=== PATIENT | male | born 1975 | race Caucasian/White ===

== ENCOUNTER 2024-12-06 23:43 | Emergency (ER) | payer SELFPAY ==
[~2024-12-06] VITALS: Ht 177.8 cm; Wt 101.0 kg
[2024-12-06 23:45] VITALS: O2SAT 96
[2024-12-07] MEDS: FLUORESCEIN SODIUM 1MG/STRIP RIGHTEYE ONE (01:12)
[2024-12-07] MEDS: LIDOCAINE HCL 1% 20ML VIAL INFIL ONE (01:12)
[2024-12-07] MEDS: TETANUS, DIPHTHERIA, PERTUSSIS VAC/PF 0.5ML (>10YR OLD) IM ONE (01:13)
[2024-12-07] MEDS: BACITRACIN ZINC OINT UDPKT TOP ONE (01:14)
[2024-12-07] MEDS: ACETAMINOPHEN 500MG TABLET PO ONE (01:14)
[2024-12-07] MEDS ORDERED: IBUP-1455 MT (01:29)
[2024-12-07] MEDS ORDERED: BO1 TP (01:29)
[2024-12-07 03:21] LABS: CREATININE 0.8 mg/dL (0.6-1.3); UREA NITROGEN BLOOD 5 mg/dL (9-23)
[2024-12-07 03:38] LABS: BASOPHILS % 0.3 % (0.0-2.0); EOSINOPHILS % 1.8 % (0.0-5.0); HEMATOCRIT. 46.1 % (42.0-52.0); HEMOGLOBIN. 15.7 g/dL (14.0-18.0); LYMPHOCYTES % 14.4 % (20.0-50.0); MEAN PLATELET VOLUME 9.3 fl (7.4-10.4); MONOCYTES % 8.0 % (2.0-8.0); NEUTROPHILS % 75.5 % (40.0-76.0); PLATELET 157 x1000/uL (130-400); RED BLOOD CELL COUNT 5.32 mill/uL (4.7-6.1); RED CELL DISTRIBUTION WIDTH 13.4 % (11.6-14.6)
[2024-12-07] MEDS: SODIUM CHLORIDE 0.9% 500 ML IV ONE (03:45)
[2024-12-07 04:52] VITALS: BP 139/82; PULSE 91; RESP 18; TEMP 36.9; O2SAT 96
== END 2024-12-07 05:05 | disposition home or self-care (01) ==
LOC: ER 23:43
DX: S00.83XA Contusion of other part of head, initial encounter (principal); M54.2 Cervicalgia; Y09 Assault by unspecified means; Y93.89 Activity, other specified; Y92.89 Other specified places as the place of occurrence of the external cause; Y99.8 Other external cause status
CPT/HCPCS: 12011; 99285; 80048; 85025; 36415; 70450; 70486; 72125; 90715; 90471; 96360; J2003; Z7610 ×2